=== PATIENT | female | born 1965 | race Caucasian/White ===

== ENCOUNTER 2020-10-04 17:23 | Emergency (ER) | payer OTHER ==
[~2020-10-04] VITALS: Ht 157.5 cm; Wt 73.0 kg
[2020-10-04] MEDS ORDERED: VOLTAREN100 GM TOP (17:31)
[2020-10-04] MEDS ORDERED: CANABIS (17:32)
== END 2020-10-05 11:38 | disposition home or self-care (01) ==
LOC: ER 17:23
DX: R19.04 Left lower quadrant abdominal swelling, mass and lump (principal); N80.8 Other endometriosis; K59.09 Other constipation; Z11.52 Encounter for screening for COVID-19

== ENCOUNTER 2020-10-20 10:48 | Outpatient (CLI) | payer OTHER ==
[~2020-10-20 10:48] MED LIST: CANABIS; VOLTAREN100 GM TOP
[2021-01-10] MEDS ORDERED: VOLTA PO (10:48)
== END 2020-10-20 10:58 | disposition home or self-care (01) ==
LOC: MRI 10:48
PROVIDERS: ATTEND Obstetrics & Gynecology Gynecology
DX: D27.0 Benign neoplasm of right ovary (principal)
CPT/HCPCS: 72196

== ENCOUNTER 2020-11-09 15:44 | Inpatient (IN) | payer OTHER ==
[~2020-11-09] VITALS: Ht 165.1 cm; Wt 72.6 kg
[2020-11-09] MEDS ORDERED: FAMOTIDINE20 MG (15:56)
[2020-11-09] MEDS ORDERED: REGLAN5 MG/5 ML (15:56)
[2020-11-09] MEDS ORDERED: PROTONIX20 MG (15:56)
[2020-11-09] MEDS ORDERED: BUTALB-ACETAMI1 EACH (15:56)
--- NOTE | 2020-11-09 15:57 | NUR ---
PACIENTE ALERTA Y ORIENTADA EN [place] ESFERAS. PACIENTE VIENE POR DOLOR EN EL AREA PELVICA. PACIENTE VIENE CON REFERIDO DEL DR. GALLARDO Y PARA SER ATENDIDA POR EL DR. WESLEY JHAO PREVIO A CIRUGIA DE CANCER DE OVARIOS EN EL GEORGETTE DE MANANA.
--- NOTE | 2020-11-09 17:03 | NUR ---
SE EJECUTA ORDEN MEDICA EN PADRON TOTALIDAD, PACIENTE AL MOMENTO SE LE REALIZA ADMINISTRACION DE MEDICAMENTOS, SE ORIENTO SOBRE USO Y EFECTOS, SE REALIZARON MUESTRAS DE MARTHA BAJO MEDIDAS ASEPTICAS. AL MOMENTO PACIENTE QUEDA PENDIENTE DE RESULTADOS DE LABORATORIO.
[2020-11-11] MEDS ORDERED: BUTALB-ACETAMI1 EAC2 (13:16)
[2021-01-10] MEDS ORDERED: VOLTA PO (10:48)
== END 2020-11-15 10:46 | disposition home or self-care (01) | DRG 737 ==
LOC: ER 15:44 → MEDJ 20:38 → SURH 11-11 07:23
PROVIDERS: Obstetrics & Gynecology Gynecologic Oncology; Surgery; ADMIT Internal Medicine; ATTEND Internal Medicine
PROC: 0DBU0ZZ Excision of Omentum, Open Approach (ICD-10-PCS; 2020-11-10)
PROC: 0DTN0ZZ Resection of Sigmoid Colon, Open Approach (ICD-10-PCS; 2020-11-10)
PROC: 0DTP0ZZ Resection of Rectum, Open Approach (ICD-10-PCS; 2020-11-10)
PROC: 0DJD8ZZ Inspection of Lower Intestinal Tract, Via Natural or Artificial Opening Endoscopic (ICD-10-PCS; 2020-11-10)
PROC: 0UT20ZZ Resection of Bilateral Ovaries, Open Approach (ICD-10-PCS; principal; 2020-11-10 15:00)
PROC: 0UT70ZZ Resection of Bilateral Fallopian Tubes, Open Approach (ICD-10-PCS; 2020-11-10 15:00)
PROC: 30233N1 Transfusion of Nonautologous Red Blood Cells into Peripheral Vein, Percutaneous Approach (ICD-10-PCS; 2020-11-11)
DX: C56.1 Malignant neoplasm of right ovary (principal); C78.5 Secondary malignant neoplasm of large intestine and rectum; C78.6 Secondary malignant neoplasm of retroperitoneum and peritoneum; C79.82 Secondary malignant neoplasm of genital organs; N99.61 Intraoperative hemorrhage and hematoma of a genitourinary system organ or structure complicating a genitourinary system procedure; C54.1 Malignant neoplasm of endometrium; K59.00 Constipation, unspecified; N94.89 Other specified conditions associated with female genital organs and menstrual cycle; K29.70 Gastritis, unspecified, without bleeding; K31.84 Gastroparesis; K21.9 Gastro-esophageal reflux disease without esophagitis; R19.00 Intra-abdominal and pelvic swelling, mass and lump, unspecified site; K57.30 Diverticulosis of large intestine without perforation or abscess without bleeding; Z20.822 Contact with and (suspected) exposure to COVID-19

== ENCOUNTER 2020-11-28 11:58 | Inpatient (IN) | payer OTHER ==
[~2020-11-28] VITALS: Ht 157.5 cm; Wt 72.1 kg
[~2020-11-28 11:58] MED LIST changes: +BUTALB-ACETAMI1 EAC2; +BUTALB-ACETAMI1 EACH; +FAMOTIDINE20 MG; +PROTONIX20 MG; +REGLAN5 MG/5 ML
[2020-11-28] MEDS ORDERED: COLACE100 MG (13:02)
[2020-11-28] MEDS ORDERED: [UNRECOGNIZED DRUG - OTHER] (13:02)
[2020-12-05] MEDS ORDERED: PROTONIX40 MG PO (17:10)
[2020-12-05] MEDS ORDERED: METOCLOPRAMIDE10 MG PO (17:10)
[2020-12-05] MEDS ORDERED: CARAFATE1 GM PO (17:10)
[2021-01-10] MEDS ORDERED: VOLTA PO (10:48)
== END 2020-12-05 18:26 | disposition home or self-care (01) | DRG 392 ==
LOC: ER 11:58 → MEDJ 11-29 09:09 → SEC-K 11-29 09:09 → MEDJ 11-29 11:29
PROVIDERS: ADMIT Surgery; ATTEND Surgery
PROC: 0DB78ZX Excision of Stomach, Pylorus, Via Natural or Artificial Opening Endoscopic, Diagnostic (ICD-10-PCS; principal; 2020-12-02)
DX: K31.84 Gastroparesis (principal); C56.1 Malignant neoplasm of right ovary; K21.9 Gastro-esophageal reflux disease without esophagitis; Z20.822 Contact with and (suspected) exposure to COVID-19; E86.0 Dehydration; K43.2 Incisional hernia without obstruction or gangrene; K29.50 Unspecified chronic gastritis without bleeding

== ENCOUNTER 2021-01-19 05:49 | Day surgery (SDC) | payer OTHER ==
[~2021-01-19 05:49] MED LIST changes: +CARAFATE1 GM PO; +COLACE100 MG; +METOCLOPRAMIDE10 MG PO; +PROTONIX40 MG PO; +VOLTA PO; +[UNRECOGNIZED DRUG - OTHER]
[2021-01-19] MEDS ORDERED: TRAMADOL HCL50 MG PO (11:02)
== END 2021-01-19 12:30 | disposition home or self-care (01) ==
LOC: CIR.AMB 05:49
PROVIDERS: ATTEND Surgery
DX: C78.5 Secondary malignant neoplasm of large intestine and rectum (principal); Z20.822 Contact with and (suspected) exposure to COVID-19
CPT/HCPCS: 36561; C1751

== ENCOUNTER 2021-09-18 08:15 | Inpatient (IN) | payer OTHER ==
[~2021-09-18] VITALS: Ht 160 cm; Wt 67.1 kg
[~2021-09-18 08:15] MED LIST changes: +TRAMADOL HCL50 MG PO
[2021-09-18] MEDS ORDERED: [UNRECOGNIZED DRUG - CODE] PO (10:42)
[2021-09-18] MEDS ORDERED: OMEPRAZ PO (10:43)
[2021-09-18] MEDS ORDERED: FIORICET PO (10:43)
[2021-09-18] MEDS ORDERED: CARAFA PO (10:44)
[2021-09-18] MEDS ORDERED: REGLAN (10:45)
[2021-09-18] MEDS ORDERED: [UNRECOGNIZED DRUG - CODE] (10:45)
[2021-09-28] MEDS ORDERED: ONDANSETRON HCL8 MG (13:04)
[2021-09-28] MEDS ORDERED: CLONAZEPAM1 MG (13:04)
[2021-09-28] MEDS ORDERED: DICLOFENAC POTA50 MG (13:04)
[2021-09-28] MEDS ORDERED: PROAIR HFA8.5 GM (13:05)
[2021-09-28] MEDS ORDERED: PANTOPRAZOLE SO40 MG (13:05)
[2021-09-28] MEDS ORDERED: ULTRAM50 MG (13:08)
[2021-09-28] MEDS ORDERED: BUTALBIT-ACETA1 EACH (13:08)
[2021-09-28] MEDS ORDERED: ONDANSETRON ODT8 MG (13:08)
[2021-09-28] MEDS ORDERED: NEUPOGEN300 MCG/01 (13:09)
[2021-09-28] MEDS ORDERED: BUTALB-ACETAMI1 EAC2 (13:09)
[2021-09-28] MEDS ORDERED: METOCLOPRAMIDE H5 MG (13:10)
[2021-10-04] MEDS ORDERED: ULTRAM50 MG PO (07:20)
[2021-10-04] MEDS ORDERED: CARAFATE1 GM PO (07:20)
[2021-10-04] MEDS ORDERED: TYLENOL ARTHRI650 MG PO (07:20)
[2021-10-04] MEDS ORDERED: PROTONIX40 MG PO (07:20)
[2021-10-04] MEDS ORDERED: NEURONTIN300 MG PO (07:20)
== END 2021-10-04 11:04 | disposition home or self-care (01) | DRG 354 ==
LOC: SURH 09-21 08:15 → O/R 09-28 09:41 → SURG 09-28 09:41 → SURH 09-30 12:56 → SURG 09-30 13:40
PROVIDERS: ADMIT Surgery; ATTEND Surgery
PROC: 0WQF0ZZ Repair Abdominal Wall, Open Approach (ICD-10-PCS; 2021-09-28)
PROC: 0WUF0JZ Supplement Abdominal Wall with Synthetic Substitute, Open Approach (ICD-10-PCS; principal; 2021-09-28 07:45)
PROC: 0D9670Z Drainage of Stomach with Drainage Device, Via Natural or Artificial Opening (ICD-10-PCS; 2021-09-29)
PROC: 3E0G76Z Introduction of Nutritional Substance into Upper GI, Via Natural or Artificial Opening (ICD-10-PCS; 2021-09-29)
DX: K43.2 Incisional hernia without obstruction or gangrene (principal); K92.2 Gastrointestinal hemorrhage, unspecified; K42.9 Umbilical hernia without obstruction or gangrene; R11.0 Nausea; K31.84 Gastroparesis